=== PATIENT | female | born 2000 | race Caucasian/White ===

== ENCOUNTER 2018-05-22 20:16 | Emergency (ER) | payer BC ==
[2018-05-22] MEDS ORDERED: Sodium Chloride 0.9% 10 ML Syringe FLUSH PRN (20:23)
[2018-05-22] MEDS ORDERED: Ondansetron 4 MG/2 ML SDV IVPUSH ONE (20:23)
[2018-05-22] MEDS ORDERED: Lactated Ringers 1,000 ML IV ONE (20:23)
[2018-05-22 21:07] LABS: CHLORIDE,CL 104 mmol/L (98-107); SODIUM,NA 141 mmol/L (136-145)
--- NOTE | 2018-05-22 22:38 | EDM.PDOC ---
ED HPI GENERAL MEDICAL PROBLEM - General Chief Complaint: Gastrointestinal Problem Stated Complaint: THROWING UP Time Seen by Provider: 05/22/18 20:16 Source of Information: Reports: Patient History Limitations: Reports: No Limitations - History of Present Illness INITIAL COMMENTS - FREE TEXT/NARRATIVE: Pt. reports protracted vomiting this afternoon and evening. She was started on augmentin today at the clinic. Pt. states that she had some lymph node enlargement but states that her workup was negative for a source of infection, and she was started on some augmentin. States that shortly after taking the first dose, she developed severe abdominal cramps and vomiting. She states that she has vomited over 8 times this PM. Denies any focal abdominal discomfort, but has diffuse cramping. No fever or chills. No chest pain or shortness of breath. Pt. states that she is not sure if she has taken augmentin in the past. Denies any other allergies or intolerances. Denies any vomiting. No melena, hematochezia or hematemesis. Onset: Today Onset Date: 05/22/18 Location: Reports: Abdomen, Generalized Quality: Reports: Ache, Dull Associated Symptoms: Reports: Nausea/Vomiting - Related Data Allergies Allergy/AdvReac Type Severity Reaction Status Date / Time amoxicillin [From Augmentin] Allergy Nausea and Verified 05/22/18 20:21 Vomiting clavulanic acid Allergy Nausea and Verified 05/22/18 20:21 [From Augmentin] Vomiting Home Meds: Home Meds . [No Known Home Meds] 05/22/18 [History] Past Medical History - Past Health History Medical/Surgical History: Denies Medical/Surgical History Social & Family History - Tobacco Use Smoking Status *Q: Never Smoker - Recreational Drug Use Recreational Drug Use: No ED ROS GENERAL - Review of Systems Review Of Systems: See Below Constitutional: Reports: Malaise, Weakness, Fatigue HEENT: Reports: No Symptoms Respiratory: Reports: No Symptoms Cardiovascular: Reports: No Symptoms Endocrine: Reports: No Symptoms GI/Abdominal: Reports: Abdominal Pain (diffuse abdominal discomfort, nausea, and vomiting), Nausea, Vomiting : Reports: No Symptoms Musculoskeletal: Reports: No Symptoms Skin: Reports: No Symptoms Neurological: Reports: No Symptoms Psychiatric: Reports: No Symptoms Hematologic/Lymphatic: Reports: Swollen Glands Immunologic: Reports: No Symptoms ED EXAM, GENERAL - Physical Exam Exam: See Below Exam Limited By: No Limitations General Appearance: Alert, WD/WN, No Apparent Distress Eye Exam: Bilateral Eye: EOMI, PERRL Nose: Normal Inspection, No Blood Throat/Mouth: Normal Inspection, Normal Lips, Normal Teeth, Normal Gums, Normal Oropharynx, Normal Voice, No Airway Compromise, Other (oral mucosa is dry) Head: Atraumatic, Normocephalic Neck: Normal Inspection, Supple, Non-Tender, Full Range of Motion Respiratory/Chest: No Respiratory Distress, Lungs Clear, Normal Breath Sounds, No Accessory Muscle Use, Chest Non-Tender Cardiovascular: Normal Peripheral Pulses, Regular Rate, Rhythm, No Edema, No Gallop, No JVD, No Murmur Peripheral Pulses: 4+: Radial (L), Radial (R) GI/Abdominal: Normal Bowel Sounds, Soft, No Organomegaly, No Distention, No Mass , Tender (initially diffusely tender throughout) (Female) Exam: Deferred Rectal (Female) Exam: Deferred Back Exam: Normal Inspection, Full Range of Motion Extremities: Normal Inspection, Normal Range of Motion, Non-Tender, No Pedal Edema Neurological: Alert, Oriented, CN II-XII Intact, Normal Cognition, Normal Gait, Normal Reflexes, No Motor/Sensory Deficits Skin Exam: Warm, Dry, Pallor Course - Vital Signs Last Recorded V/S: Last Vital Signs Temp 36.3 C 05/22/18 20:16 Pulse 105 H 05/22/18 20:16 Resp 20 05/22/18 20:16 BP 102/58 L 05/22/18 20:16 Pulse Ox 100 05/22/18 20:16 - Orders/Labs/Meds Orders: Active Orders 24 hr Category Date Time Status Peripheral IV Insertion Adult [OM.PC] Routine Oth 05/22/18 20:23 Ordered Labs: Laboratory Tests 05/22/18 05/22/18 05/22/18 Range/Units 20:37 20:37 20:37 WBC 18.4 H (4.0-10.0) x10^3/uL RBC 4.59 (4.00-5.50) x10^6/uL Hgb 13.5 (12.0-16.0) g/dL Hct 39.0 (33.0-47.0) % MCV 85.0 (78.0-93.0) fL MCH 29.4 (26.0-32.0) pg MCHC 34.6 (32.0-36.0) g/dL RDW Coeff of [place] 12.8 (10.0-15.0) % Plt Count 330 (130-400) x10^3/uL Add Manual Diff Yes Neutrophils % (Manual) 83 H (50-80) % Band Neutrophils % 3 (0-6) % Lymphocytes % (Manual) 7 L (25-50) % Reactive Lymphs % 1 H (0) % Monocytes % (Manual) 5 (2-11) % Eosinophils % (Manual) 1 (0-4) % Platelet Estimate Adequate PT 10.4 (10.0-12.8) SEC INR 0.9 L (2.0-3.5) Sodium 141 (136-145) mmol/L Potassium 4.0 (3.5-5.1) mmol/L Chloride 104 (98-107) mmol/L Carbon Dioxide 19 L (21-32) mmol/L Anion Gap 22.0 H (10-20) mmol/L BUN 14 (7-18) mg/dL Creatinine 1.0 (0.55-1.02) mg/dL Est Cr Clr Drug Dosing TNP Estimated GFR (MDRD) > 60 Glucose 140 H (74-106) mg/dL Calcium 9.5 (8.5-10.1) mg/dL Corrected Calcium 9.66 (8.5-10.1) mg/dL Phosphorus 0.6 L* (2.6-4.7) mg/dL Magnesium 1.7 L (1.8-2.4) mg/dL Total Bilirubin 0.8 (0.2-1.0) mg/dL AST 23 (15-37) U/L ALT 21 (14-59) U/L Alkaline Phosphatase 51 (46-116) U/L Total Protein 8.0 (6.4-8.2) g/dL Albumin 3.8 (3.4-5.0) g/dL Globulin 4.2 Albumin/Globulin Ratio 0.90 Urine Color (YELLOW) Urine Appearance (CLEAR) Urine pH (5.0-8.0) Ur Specific [place] Urine Protein (NEGATIVE) mg/dL Urine Glucose (UA) (NEGATIVE) mg/dL Urine Ketones (NEGATIVE) mg/dL Urine Occult Blood (NEGATIVE) Urine Nitrite (NEGATIVE) Urine Bilirubin (NEGATIVE) Urine Urobilinogen (0.2) EU/dL Ur Leukocyte Esterase (NEGATIVE) Urine RBC (NOT SEEN) /HPF Urine WBC (NOT SEEN) /HPF Ur Squamous Epith Cells (NEGATIVE) /HPF Urine Bacteria (NEGATIVE) /HPF Urine Mucus (NEGATIVE) /LPF POC Urine HCG, Qual (NEGATIVE) 05/22/18 05/22/18 Range/Units 20:44 20:44 WBC (4.0-10.0) x10^3/uL RBC (4.00-5.50) x10^6/uL Hgb (12.0-16.0) g/dL Hct (33.0-47.0) % MCV (78.0-93.0) fL MCH (26.0-32.0) pg MCHC (32.0-36.0) g/dL RDW Coeff of [place] (10.0-15.0) % Plt Count (130-400) x10^3/uL Add Manual Diff Neutrophils % (Manual) (50-80) % Band Neutrophils % (0-6) % Lymphocytes % (Manual) (25-50) % Reactive Lymphs % (0) % Monocytes % (Manual) (2-11) % Eosinophils % (Manual) (0-4) % Platelet Estimate PT (10.0-12.8) SEC INR (2.0-3.5) Sodium (136-145) mmol/L Potassium (3.5-5.1) mmol/L Chloride (98-107) mmol/L Carbon Dioxide (21-32) mmol/L Anion Gap (10-20) mmol/L BUN (7-18) mg/dL Creatinine (0.55-1.02) mg/dL Est Cr Clr Drug Dosing Estimated GFR (MDRD) Glucose (74-106) mg/dL Calcium (8.5-10.1) mg/dL Corrected Calcium (8.5-10.1) mg/dL Phosphorus (2.6-4.7) mg/dL Magnesium (1.8-2.4) mg/dL Total Bilirubin (0.2-1.0) mg/dL AST (15-37) U/L ALT (14-59) U/L Alkaline Phosphatase (46-116) U/L Total Protein (6.4-8.2) g/dL Albumin (3.4-5.0) g/dL Globulin Albumin/Globulin Ratio Urine Color Yellow (YELLOW) Urine Appearance Clear (CLEAR) Urine pH 7.5 (5.0-8.0) Ur Specific [place] 1.020 Urine Protein Trace H (NEGATIVE) mg/dL Urine Glucose (UA) Negative (NEGATIVE) mg/dL Urine Ketones 40 H (NEGATIVE) mg/dL Urine Occult Blood Negative (NEGATIVE) Urine Nitrite Negative (NEGATIVE) Urine Bilirubin Negative (NEGATIVE) Urine Urobilinogen 0.2 (0.2) EU/dL Ur Leukocyte Esterase Negative (NEGATIVE) Urine RBC 0-5 (NOT SEEN) /HPF Urine WBC 0-5 (NOT SEEN) /HPF Ur Squamous Epith Cells Few H (NEGATIVE) /HPF Urine Bacteria Not seen (NEGATIVE) /HPF Urine Mucus Not seen (NEGATIVE) /LPF POC Urine HCG, Qual Negative (NEGATIVE) Meds: Medications Discontinued Medications Generic Name Dose Route Start Last Admin Trade Name Freq PRN Reason Stop Dose Admin Lactated Ringer's 1,000 mls @ 1,000 mls/hr 05/22/18 20:23 05/22/18 20:42 Ringers, Lactated IV 05/22/18 21:22 1,000 mls/hr ONETIME ONE Administration Ondansetron HCl 4 mg 05/22/18 20:23 05/22/18 20:42 Zofran IVPUSH 05/22/18 20:24 4 mg ONETIME ONE Administration Potassium Phos/Sodium Phos 1 each 05/23/18 21:42 05/22/18 22:04 Phos-Nak Powder PO 05/23/18 21:43 1 each ONETIME ONE Administration Sodium Chloride 10 ml 05/22/18 20:23 Saline Flush FLUSH ASDIRECTED PRN Keep Vein Open - Re-Assessments/Exams Free Text/Narrative Re-Assessment/Exam: 05/22/18 22:40 Pt. was given a liter of LR IV and zofran 4mg IV. She reported complete resolution of the nausea and vomiting. States that the abdominal discomfort resolved as well. Was requesting discharge from ER on reevaluation. Departure - Departure Time of Disposition: 22:00 Disposition: Home, Self-Care 01 Clinical Impression: Medication reaction, Dehydration, Hypophosphatemia - Discharge Information Instructions: Nausea and Vomiting, Adult Referrals: PCP,Not In Area [Primary Care Provider] - Forms: ED Department Discharge Additional Instructions: K phos neutral 1 by mouth 4 times per day until gone Recheck in clinic in 10-14 days Return to ER if continued nausea, vomiting, or diarrhea. Also return if you have any increased abdominal pain. - My Orders Last 24 Hours: My Active Orders 05/22/18 20:23 Peripheral IV Insertion Adult [OM.PC] Routine - Assessment/Plan Last 24 Hours: My Active Orders 05/22/18 20:23 Peripheral IV Insertion Adult [OM.PC] Routine Plan: Discussed findings with patient. She was advised to return to ER if she has resumption of nausea and vomiting or if her abdominal discomfort worsens again. She will be started on Kphos 4 times daily for 5 days. She was advised to eat a bland diet tomorrow. I did not start her an a different antibiotic since she was not diagnosed with any specific illness and advised watchful waiting at this point. All questions were answered.
[2018-05-23] MEDS ORDERED: Potassium Phosphate,Mb-Db/Sodium Phosphate,Mb-Db Packet PO ONE (21:42)
== END 2018-05-22 22:10 | disposition home or self-care (01) ==
LOC: VM.ED 20:16
DX: R11.2 Nausea with vomiting, unspecified (principal); E86.0 Dehydration; E83.39 Other disorders of phosphorus metabolism; T36.0X5A Adverse effect of penicillins, initial encounter; R59.9 Enlarged lymph nodes, unspecified; Z88.1 Allergy status to other antibiotic agents
CPT/HCPCS: 80053; 81001; 81025; 83735; 84100; 85025; 85610; 96361; 96374; 99284-25; A9270-GY; J2405; J7120